=== PATIENT | male | born 1955 | race Caucasian/White ===

== ENCOUNTER 2018-08-13 14:42 | Emergency (ER) | payer OTHER ==
[2018-08-13 15:38] LABS: ALANINE AMINOTRANSFERASE 17 IU/L (13-69); ALBUMIN 4.1 g/dl (3.3-4.9); ALBUMIN/GLOBULIN RATIO 1.36; ALKALINE PHOSPHATASE 66 IU/L (42-121); ANION GAP 9 (5-13); ASPARTATE AMINO TRANSFERASE 12 IU/L (15-46); BILIRUBIN,INDIRECT 0.6 mg/dl (0-1.1); BILIRUBIN,TOTAL 0.6 mg/dl (0.2-1.3); BLOOD UREA NITROGEN 11 mg/dl (7-20); CALCIUM 8.9 mg/dl (8.4-10.2); CARBON DIOXIDE 23 mmol/L (21-31); CHLORIDE 106 mmol/L (97-110); CREATININE 0.75 mg/dl (0.61-1.24); Estimated GFR > 60 mL/min (>60); GLUCOSE 96 mg/dl (70-220); SODIUM 138 mmol/L (135-144); TOTAL PROTEIN 7.1 g/dl (6.1-8.1)
[2018-08-13 15:40] LABS: POTASSIUM 4.1 mmol/L (3.5-5.1)
[2018-08-13 15:49] LABS: TROPONIN-I < 0.012 ng/ml (0.000-0.120)
[2018-08-13 15:50] LABS: ABNORMAL IP MESSAGE 1; HEMATOCRIT 13.8 % (42.0-52.0); MEAN CORPUSCULAR HEMOGLOBIN 29.8 pg (29.0-33.0); MEAN CORPUSCULAR HGB CONC 32.6 g/dl (32.0-37.0); MEAN CORPUSCULAR VOLUME 91.4 fl (82.0-101.0); POSITIVE DIFF @See below; RED BLOOD COUNT 1.51 10^6/ul (4.70-6.10); RED CELL DISTRIBUTION WIDTH 15.3 % (11.5-14.5)
[2018-08-13 15:50] LABS: WHITE BLOOD COUNT 1.1 10^3/ul (4.8-10.8)
[2018-08-13 16:05] LABS: INR 1.18; PROTIME 15.2 Sec (11.9-14.9); PT RATIO 1.2
[2018-08-13 16:06] LABS: ADD MAN DIFF? YES; HEMOGLOBIN 4.5 g/dl (14.0-18.0); PLATELET COUNT 3 10^3/UL (140-415)
[2018-08-13 16:07] LABS: PATH REVIEW? YES
[2018-08-13 16:35] LABS: TYPE AND SCREEN 1
[2018-08-13] MEDS: SOD CHLORIDE 0.9% 250 ML IV (16:54)
[2018-08-13] MEDS ORDERED: ONDANSETRON 4 MG INJ (17:51)
[2018-08-13 17:59] LABS: IMMEDIATE SPIN CROSSMATCH 1 2
[2018-08-13] MEDS: ONDANSETRON 4 MG INJ IV (18:11)
[2018-08-13] MEDS ORDERED: NACL 0.9% 3 ML SYG IV (19:30)
== END 2018-08-13 20:39 | disposition left against medical advice (07) ==
LOC: E/R 14:42
PROVIDERS: Pediatrics Neonatal-Perinatal Medicine
DX: D61.818 Other pancytopenia (principal); R40.2142 Coma scale, eyes open, spontaneous, at arrival to emergency department; R40.2362 Coma scale, best motor response, obeys commands, at arrival to emergency department; I25.10 Atherosclerotic heart disease of native coronary artery without angina pectoris; I10 Essential (primary) hypertension; F17.210 Nicotine dependence, cigarettes, uncomplicated; Z79.82 Long term (current) use of aspirin; Z95.1 Presence of aortocoronary bypass graft
CPT/HCPCS: 36415; 36430; 71045; 80053; 84484; 85025; 85610; 86850; 86900; 86901; 86920; 93005; 96374; 99285-25

== ENCOUNTER 2018-08-20 16:14 | Inpatient (IN) | payer OTHER ==
[2018-08-20] MEDS ORDERED: ZOLPIDEM 5 MG TAB PO ×2 (19:30)
[2018-08-20] MEDS ORDERED: NACL 0.9% 3 ML SYG IV (19:30)
[2018-08-20] MEDS ORDERED: HYDROCODONE/APAP (5/325) TAB PO (19:30)
[2018-08-20] MEDS ORDERED: morphine 2 MG INJ IV (19:30)
[2018-08-20] MEDS ORDERED: DOCUSATE SODIUM 100 MG CAP PO (19:30)
[2018-08-20] MEDS ORDERED: MECLIZINE 25 MG TAB PO (19:30)
[2018-08-20] MEDS ORDERED: LORAZEPAM 1 MG TAB PO (19:30)
[2018-08-20 20:40] LABS: ABNORMAL IP MESSAGE 1; HEMATOCRIT 21.4 % (42.0-52.0); HEMOGLOBIN 7.2 g/dl (14.0-18.0); MEAN CORPUSCULAR HEMOGLOBIN 30.1 pg (29.0-33.0); MEAN CORPUSCULAR HGB CONC 33.6 g/dl (32.0-37.0); MEAN CORPUSCULAR VOLUME 89.5 fl (82.0-101.0); POSITIVE DIFF @See below; RED BLOOD COUNT 2.39 10^6/ul (4.70-6.10); RED CELL DISTRIBUTION WIDTH 14.9 % (11.5-14.5)
[2018-08-20 20:40] LABS: WHITE BLOOD COUNT 2.5 10^3/ul (4.8-10.8)
[2018-08-20 20:47] LABS: HEMOGLOBIN A1C 6.2 % (0-5.9)
[2018-08-20 20:48] LABS: ADD MAN DIFF? YES; PLATELET COUNT 5 10^3/UL (140-415)
[2018-08-20 20:59] LABS: ANION GAP 11 (5-13); BLOOD UREA NITROGEN 23 mg/dl (7-20); CALCIUM 8.4 mg/dl (8.4-10.2); CARBON DIOXIDE 30 mmol/L (21-31); CHLORIDE 96 mmol/L (97-110); CREATININE 0.86 mg/dl (0.61-1.24); Estimated GFR > 60 mL/min (>60); GLUCOSE 109 mg/dl (70-220); MAGNESIUM 1.8 mg/dl (1.7-2.5); PHOSPHORUS 3.1 mg/dl (2.5-4.9); POTASSIUM 3.6 mmol/L (3.5-5.1); SODIUM 137 mmol/L (135-144)
[2018-08-20 21:10] LABS: LYMPHOCYTES #M 1.3 10^3/ul (0.8-2.9); LYMPHOCYTES % (M) 52 % (15-51); MONOCYTE #M 0.4 10^3/ul (0.3-0.9); MONOCYTES % (M) 17 % (0-11); MYELOCYTES % (M) 3 % (0-0); PLASMAC%(M) 1 % (0); PLATELET ESTIMATE SIG DECREASED; REACTIVE LYMPHOCYTES #M 0.1 10^3/ul (0.0-0.0); REACTIVE LYMPHOCYTES% (M) 7 % (0-0); SEGMENTED NEUTROPHILS (M) % 3 % (39-77); SMUDGE%M 46 % (0-0)
[2018-08-20] MEDS: TAMSULOSIN (SR) 0.4 MG CAP PO (21:52)
[2018-08-21 00:09] LABS: LACTATE DEHYDROGENASE 821 IU/L (313-618)
[2018-08-21 00:09] LABS: IRON 188 ug/dl (35-150)
[2018-08-21 00:18] LABS: % IRON SATURATION 79 % SAT (22-52); TOTAL IRON BINDING CAPACITY 237 ug/dl (241-421)
[2018-08-21 01:12] LABS: IMMEDIATE SPIN CROSSMATCH 1 2
[2018-08-21 01:42] LABS: FOLATE 9.1 ng/ml (2.8-20.0)
[2018-08-21 06:12] LABS: WHITE BLOOD COUNT 2.4 10^3/ul (4.8-10.8)
[2018-08-21 06:12] LABS: ABNORMAL IP MESSAGE 1; HEMATOCRIT 23.8 % (42.0-52.0); HEMOGLOBIN 8.1 g/dl (14.0-18.0); MEAN CORPUSCULAR HEMOGLOBIN 30.2 pg (29.0-33.0); MEAN CORPUSCULAR VOLUME 88.8 fl (82.0-101.0); POSITIVE DIFF @See below; RED BLOOD COUNT 2.68 10^6/ul (4.70-6.10); RED CELL DISTRIBUTION WIDTH 14.9 % (11.5-14.5)
[2018-08-21 06:21] LABS: HEMOGLOBIN A1C 6.3 % (0-5.9)
[2018-08-21] MEDS: PANTOPRAZOLE (EC) 40 MG TAB PO (06:28)
[2018-08-21 06:34] LABS: ADD MAN DIFF? YES; PLATELET COUNT 4 10^3/UL (140-415)
[2018-08-21 06:40] LABS: ANION GAP 10 (5-13); BLOOD UREA NITROGEN 24 mg/dl (7-20); CALCIUM 8.6 mg/dl (8.4-10.2); CARBON DIOXIDE 31 mmol/L (21-31); CHLORIDE 95 mmol/L (97-110); CREATININE 0.82 mg/dl (0.61-1.24); Estimated GFR > 60 mL/min (>60); GLUCOSE 116 mg/dl (70-220); MAGNESIUM 1.8 mg/dl (1.7-2.5); PHOSPHORUS 2.9 mg/dl (2.5-4.9); POTASSIUM 3.5 mmol/L (3.5-5.1); SODIUM 136 mmol/L (135-144)
[2018-08-21 07:23] LABS: ANISOCYTOSIS 2+ (0-0); LYMPHOCYTES % (M) 43 % (15-51); MICROCYTOSIS 1+ (0-0); MONOCYTE #M 0.8 10^3/ul (0.3-0.9); MONOCYTES % (M) 34 % (0-11); MYELOCYTES % (M) 4 % (0-0); PLATELET ESTIMATE SIG DECREASED; POLYCHROMASIA 3+ (0-0); REACTIVE LYMPHOCYTES% (M) 2 % (0-0); SEGMENTED NEUTROPHILS (M) % 3 % (39-77); SMUDGE%M 9 % (0-0)
[2018-08-21] MEDS: ATENOLOL 25 MG TAB PO (08:43)
[2018-08-21] MEDS: TERAZOSIN 1 MG CAP PO (08:43)
[2018-08-21] MEDS: CITALOPRAM 20 MG TAB PO (08:43)
[2018-08-21] MEDS: ISOSORBIDE MONONITRATE(SR)60 MG TAB PO (08:44)
[2018-08-21] MEDS: FAMOTIDINE 20 MG TAB PO (08:44)
[2018-08-21] MEDS: ONDANSETRON 4 MG INJ IV (09:42)
[2018-08-21 16:33] LABS: LACTATE DEHYDROGENASE 849 IU/L (313-618)
[2018-08-21] MEDS: TAMSULOSIN (SR) 0.4 MG CAP PO (20:37)
[2018-08-22] MEDS: PANTOPRAZOLE (EC) 40 MG TAB PO (06:43)
[2018-08-22] MEDS: ISOSORBIDE MONONITRATE(SR)60 MG TAB PO (09:14)
[2018-08-22] MEDS: CITALOPRAM 20 MG TAB PO (09:14)
[2018-08-22] MEDS: FAMOTIDINE 20 MG TAB PO (09:14)
[2018-08-22] MEDS: ATENOLOL 25 MG TAB PO (09:15)
[2018-08-22] MEDS: TERAZOSIN 1 MG CAP PO (09:15)
[2018-08-22 10:40] LABS: ABNORMAL IP MESSAGE 1; HEMATOCRIT 24.2 % (42.0-52.0); HEMOGLOBIN 7.9 g/dl (14.0-18.0); MEAN CORPUSCULAR HEMOGLOBIN 29.6 pg (29.0-33.0); MEAN CORPUSCULAR HGB CONC 32.6 g/dl (32.0-37.0); MEAN CORPUSCULAR VOLUME 90.6 fl (82.0-101.0); POSITIVE DIFF @See below; RED BLOOD COUNT 2.67 10^6/ul (4.70-6.10); RED CELL DISTRIBUTION WIDTH 15.5 % (11.5-14.5)
[2018-08-22 10:40] LABS: WHITE BLOOD COUNT 3.1 10^3/ul (4.8-10.8)
[2018-08-22 10:42] LABS: PLATELET COUNT 40 10^3/UL (140-415)
[2018-08-22 10:42] LABS: MEAN PLATELET VOLUME 11.2 fl (7.4-10.4); PLATELET COUNT 39 10^3/UL (140-415)
[2018-08-22 10:43] LABS: ADD MAN DIFF? YES
[2018-08-22 11:02] LABS: INR 1.51; PT RATIO 1.4; THROMBIN TIME 14.8 SEC (13.8-19.1)
[2018-08-22 11:04] LABS: ANION GAP 6 (5-13); BLOOD UREA NITROGEN 19 mg/dl (7-20); CALCIUM 8.7 mg/dl (8.4-10.2); CARBON DIOXIDE 36 mmol/L (21-31); CHLORIDE 97 mmol/L (97-110); CREATININE 0.66 mg/dl (0.61-1.24); Estimated GFR > 60 mL/min (>60); FIBRIN SPLIT PRODUCT >10 and <40 ug/ml (<10); GLUCOSE 103 mg/dl (70-220); LACTATE DEHYDROGENASE 756 IU/L (313-618); POTASSIUM 3.5 mmol/L (3.5-5.1); SODIUM 139 mmol/L (135-144)
[2018-08-22 11:05] LABS: PROTIME 18.5 Sec (11.9-14.9)
[2018-08-22 11:23] LABS: D-DIMER > 10000.00 ng/ml (<460)
[2018-08-22] MEDS: FUROSEMIDE 20 MG INJ IV (11:39)
[2018-08-22 12:10] LABS: ANISOCYTOSIS 1+ (0-0); BAND NEUTROPHILS % (M) 1 % (0-4); LYMPHOCYTES % (M) 33 % (15-51); METAMYELOCYTES #M 0.1 10^3/ul (0.0-0.0); METAMYELOCYTES %M 4 % (0-0); MICROCYTOSIS 1+ (0-0); MONOCYTE #M 1.1 10^3/ul (0.3-0.9); MONOCYTES % (M) 37 % (0-11); MYELOCYTES #M 0.1 10^3/ul (0.0-0.0); MYELOCYTES % (M) 4 % (0-0); OVALOCYTES 1+ (0-0); PLATELET ESTIMATE SIG DECREASED; POIKILOCYTOSIS 1+ (0-0); REACTIVE LYMPHOCYTES #M 0.2 10^3/ul (0.0-0.0); REACTIVE LYMPHOCYTES% (M) 7 % (0-0); SEG NEUT #M 0.1 10^3/ul (1.6-7.5); SEGMENTED NEUTROPHILS (M) % 2 % (39-77); SMUDGE%M 28 % (0-0); TARGET CELLS 1+ (0-0)
[2018-08-22] MEDS: TAMSULOSIN (SR) 0.4 MG CAP PO (21:51)
[2018-08-22] MEDS: ACETAMINOPHEN 325 MG TAB PO (21:52)
[2018-08-23 05:51] LABS: ABNORMAL IP MESSAGE 1; HEMATOCRIT 23.4 % (42.0-52.0); HEMOGLOBIN 7.6 g/dl (14.0-18.0); MEAN CORPUSCULAR HEMOGLOBIN 29.6 pg (29.0-33.0); MEAN CORPUSCULAR HGB CONC 32.5 g/dl (32.0-37.0); MEAN CORPUSCULAR VOLUME 91.1 fl (82.0-101.0); MEAN PLATELET VOLUME 11.4 fl (7.4-10.4); PLATELET COUNT 35 10^3/UL (140-415); POSITIVE DIFF @See below; RED BLOOD COUNT 2.57 10^6/ul (4.70-6.10); RED CELL DISTRIBUTION WIDTH 15.3 % (11.5-14.5)
[2018-08-23 05:51] LABS: WHITE BLOOD COUNT 4.2 10^3/ul (4.8-10.8)
[2018-08-23] MEDS: PANTOPRAZOLE (EC) 40 MG TAB PO (05:54)
[2018-08-23 06:05] LABS: ADD MAN DIFF? YES
[2018-08-23 06:22] LABS: ANION GAP 7 (5-13); BLOOD UREA NITROGEN 20 mg/dl (7-20); CALCIUM 8.4 mg/dl (8.4-10.2); CARBON DIOXIDE 36 mmol/L (21-31); CHLORIDE 96 mmol/L (97-110); CREATININE 0.66 mg/dl (0.61-1.24); Estimated GFR > 60 mL/min (>60); GLUCOSE 106 mg/dl (70-220); LACTATE DEHYDROGENASE 759 IU/L (313-618); POTASSIUM 3.2 mmol/L (3.5-5.1); SODIUM 139 mmol/L (135-144)
[2018-08-23 07:47] LABS: BAND NEUTROPHILS % (M) 1 % (0-4); GIANT THROMBO% (M) 2 % (0-0); LYMPHOCYTES #M 1.4 10^3/ul (0.8-2.9); LYMPHOCYTES % (M) 35 % (15-51); MONOCYTE #M 0.8 10^3/ul (0.3-0.9); MONOCYTES % (M) 21 % (0-11); PLATELET ESTIMATE SIG DECREASED; PROMYELOCYTES % (M) 2 % (0-0); REACTIVE LYMPHOCYTES #M 0.7 10^3/ul (0.0-0.0); REACTIVE LYMPHOCYTES% (M) 18 % (0-0); SEG NEUT #M 0.3 10^3/ul (1.6-7.5); SEGMENTED NEUTROPHILS (M) % 6 % (39-77); SMUDGE%M 9 % (0-0)
[2018-08-23] MEDS: FAMOTIDINE 20 MG TAB PO (08:21)
[2018-08-23] MEDS: POTASSIUM CHLORIDE 20 MEQ POWDER FOR ORAL SOLN PO (08:21)
[2018-08-23] MEDS: CITALOPRAM 20 MG TAB PO (08:21)
[2018-08-23] MEDS: ISOSORBIDE MONONITRATE(SR)60 MG TAB PO (08:21)
[2018-08-23] MEDS: TERAZOSIN 1 MG CAP PO (08:22)
[2018-08-23] MEDS: ATENOLOL 25 MG TAB PO (08:22)
[2018-08-23 10:00] LABS: HAAIG REFLEX REFLEX FILED
[2018-08-23 10:50] LABS: URIC ACID 4.3 mg/dl (3.1-7.9)
[2018-08-23] MEDS: FUROSEMIDE 20 MG INJ IV (12:02)
[2018-08-23 12:08] LABS: HEPATITIS B SURFACE ANTIGEN NEGATIVE (NEGATIVE)
[2018-08-23 12:25] LABS: HEPATITIS B CORE ANTIBODY NEGATIVE (NEGATIVE); HEPATITIS C VIRAL ANTIBODY NEGATIVE (NEGATIVE); HIV 1&2 ANTIBODY NEGATIVE (NEGATIVE)
[2018-08-23 17:09] LABS: TYPE AND SCREEN 1
[2018-08-23] MEDS: TAMSULOSIN (SR) 0.4 MG CAP PO (20:43)
[2018-08-24 05:57] LABS: ABNORMAL IP MESSAGE 1; HEMATOCRIT 21.6 % (42.0-52.0); MEAN CORPUSCULAR HEMOGLOBIN 29.9 pg (29.0-33.0); MEAN CORPUSCULAR HGB CONC 32.4 g/dl (32.0-37.0); MEAN CORPUSCULAR VOLUME 92.3 fl (82.0-101.0); MEAN PLATELET VOLUME 12.8 fl (7.4-10.4); POSITIVE DIFF @See below; RED BLOOD COUNT 2.34 10^6/ul (4.70-6.10); RED CELL DISTRIBUTION WIDTH 15.6 % (11.5-14.5)
[2018-08-24 05:57] LABS: WHITE BLOOD COUNT 3.8 10^3/ul (4.8-10.8)
[2018-08-24 06:02] LABS: ADD MAN DIFF? YES; PLATELET COUNT 27 10^3/UL (140-415)
[2018-08-24] MEDS: PANTOPRAZOLE (EC) 40 MG TAB PO (06:17)
[2018-08-24 06:22] LABS: ANION GAP 6 (5-13); BLOOD UREA NITROGEN 26 mg/dl (7-20); CALCIUM 8.5 mg/dl (8.4-10.2); CARBON DIOXIDE 35 mmol/L (21-31); CHLORIDE 97 mmol/L (97-110); CREATININE 0.71 mg/dl (0.61-1.24); Estimated GFR > 60 mL/min (>60); GLUCOSE 107 mg/dl (70-220); LACTATE DEHYDROGENASE 747 IU/L (313-618); POTASSIUM 3.7 mmol/L (3.5-5.1); SODIUM 138 mmol/L (135-144)
[2018-08-24 07:22] LABS: ANISOCYTOSIS 1+ (0-0); HYPOCHROMASIA 2+ (0-0); LYMPHOCYTES #M 2.3 10^3/ul (0.8-2.9); LYMPHOCYTES % (M) 61 % (15-51); MICROCYTOSIS 1+ (0-0); MONOCYTE #M 0.9 10^3/ul (0.3-0.9); MONOCYTES % (M) 24 % (0-11); MYELOCYTES % (M) 1 % (0-0); PLASMAC%(M) 1 % (0); PLATELET ESTIMATE SIG DECREASED; SEGMENTED NEUTROPHILS (M) % 1 % (39-77); SMUDGE%M 15 % (0-0)
[2018-08-24] MEDS: FAMOTIDINE 20 MG TAB PO (09:09)
[2018-08-24] MEDS: CITALOPRAM 20 MG TAB PO (09:09)
[2018-08-24] MEDS: ISOSORBIDE MONONITRATE(SR)60 MG TAB PO (09:09)
[2018-08-24] MEDS: ATENOLOL 25 MG TAB PO (09:09)
[2018-08-24] MEDS: TERAZOSIN 1 MG CAP PO (09:09)
[2018-08-24] MEDS: FUROSEMIDE 40 MG INJ IV (12:46)
== END 2018-08-24 14:59 | disposition short-term general hospital (02) | DRG 835 ==
LOC: 6WM 16:14
PROC: 30233R1 Transfusion of Nonautologous Platelets into Peripheral Vein, Percutaneous Approach (ICD-10-PCS; principal; 2018-08-21)
PROC: 30233N1 Transfusion of Nonautologous Red Blood Cells into Peripheral Vein, Percutaneous Approach (ICD-10-PCS; 2018-08-21)
DX: C92.00 Acute myeloblastic leukemia, not having achieved remission (principal); D61.818 Other pancytopenia; R09.02 Hypoxemia; E87.71 Transfusion associated circulatory overload; I10 Essential (primary) hypertension; Z95.1 Presence of aortocoronary bypass graft; N40.0 Benign prostatic hyperplasia without lower urinary tract symptoms; K21.9 Gastro-esophageal reflux disease without esophagitis
CPT/HCPCS: 36430; 71045; 76700; 80048; 82607; 82728; 82746; 83036; 83540; 83615; 83735; 84100; 84560; 85025; 85049; 85362; 85378; 85384; 85610; 85670; 85730; 86644; 86703; 86704; 86709; 86803; 86850; 86900; 86901; 86920; 86945; 87081; 87340; 93306